=== PATIENT | female | born 1975 ===

== ENCOUNTER 2023-12-10 12:15 | Inpatient (IN) | payer OTHER ==
[~2023-12-10] VITALS: Ht 157.5 cm; Wt 71.7 kg
[2023-12-10] MEDS ORDERED: IRON236 MG (14:02)
[2023-12-10] MEDS ORDERED: MULTI VITAMIN1 EACH (14:02)
[2023-12-14] MEDS ORDERED: CEFAZOLIN SODIUM 1,000 MG VIAL ONE ×2 (06:51→13:47)
[2023-12-14] MEDS ORDERED: CEFAZOLIN SODIUM 1,000 MG VIAL IV SCH ×2 (08:15→14:00)
[2023-12-14] MEDS ORDERED: MEPERIDINE HCL/PF 50 MG/ML VIAL IM PRN (10:45)
[2023-12-14] MEDS ORDERED: PROMETHAZINE HCL 50 MG/ML AMPUL IM PRN (10:45)
[2023-12-14] MEDS ORDERED: ONDANSETRON HCL 2 MG/ML VIAL ONE (15:27)
[2023-12-14] MEDS ORDERED: PROMETHAZINE HCL 25 MG/ML AMPUL ONE (16:11)
[2023-12-15 02:15] LABS: HEMATOCRIT 38.7 % (36.0-45.00); HEMOGLOBIN 12.6 g/dL (12.0-15.00); MEAN CELL VOLUME 82.1 fL (80.00-100.00); MEAN CORPUSCULAR HEMOGLOBIN 26.8 pg (27.00-32.0); MEAN CORPUSCULAR HGB CONC 32.6 g/dl (32.0-36.0); PLATELET COUNT 150 K/uL (150-450); RED BLOOD COUNT 4.72 M/uL (4.00-6.00)
[2023-12-15] MEDS ORDERED: OxyCODONE HCL/APAP UD (PERCOCET) PO SCH (09:00)
[2023-12-15] MEDS ORDERED: PROMETHAZINE HCL 25 MG/ML AMPUL IM STA (19:15)
[2023-12-17] MEDS ORDERED: IBUPROFEN800 MG PO (08:44)
== END 2023-12-17 09:16 | disposition home or self-care (01) | DRG 743 ==
LOC: O/R 12-14 05:20 → SURG 12-14 07:00 → OB/GYN 12-14 11:21 → SURG 12-14 12:15 → OB/GYN 12-15 15:06
PROVIDERS: ADMIT Specialist; ATTEND Specialist
PROC: 0UT70ZZ Resection of Bilateral Fallopian Tubes, Open Approach (ICD-10-PCS; 2023-12-14)
PROC: 0UT90ZZ Resection of Uterus, Open Approach (ICD-10-PCS; principal; 2023-12-14 07:15)
DX: D25.1 Intramural leiomyoma of uterus (principal); D25.2 Subserosal leiomyoma of uterus; N84.1 Polyp of cervix uteri; N72 Inflammatory disease of cervix uteri; Z20.822 Contact with and (suspected) exposure to COVID-19